=== PATIENT | male | born 1975 | race Caucasian/White ===

== ENCOUNTER 2018-12-01 17:45 | Emergency (ER) | payer OTHER, BC ==
[~2018-12-01] VITALS: Ht 180.3 cm; Wt 90.7 kg
[~2018-12-01 17:45] MED LIST: ADDERALL 20 MG20 MG PO; ALBUTEROL2.5 MG/31 INH; CARISOPRODOL 3350 MG PO; CEFDINIR S250 MG/5 M PO; DALMANE30 MG PO; EC-NAPROSYN500 M1 PO; HYDROCODONE-AP1 EAC6 PO; IBUPROFEN 800800 M1 PO; LEVAQUIN 500 M500 M2 PO; PERCOCET 7.5-31 EACH PO; PREDNISONE 10 M10 MG PO; PROMETHAZINE-C120 ML PO; TESSALON PERLE100 MG PO; XANAX XR2 MG PO; ZOFRAN4 MG PO; ZPAK PO
[2018-12-01] MEDS ORDERED: CIPROFLOXIN HC2.5 M1 OPHTHALMIC (18:14)
[2018-12-01] MEDS ORDERED: NORCO 5-325 TA1 EACH PO (18:14)
[2018-12-01 18:23] VITALS: BP 146/96
== END 2018-12-01 18:24 | disposition home or self-care (01) ==
LOC: M.ERS 17:45
DX: S05.01XA Injury of conjunctiva and corneal abrasion without foreign body, right eye, initial encounter (principal); F17.200 Nicotine dependence, unspecified, uncomplicated; X58.XXXA Exposure to other specified factors, initial encounter; Y92.89 Other specified places as the place of occurrence of the external cause; Y93.89 Activity, other specified; Y99.8 Other external cause status